=== PATIENT | male | born 1955 | race Caucasian/White ===

== ENCOUNTER 2020-03-13 21:22 | Inpatient (IN) ==
[2020-03-14] MEDS ORDERED: Naloxone 0.4 MG/ML INJ IVP PRN (01:48)
[2020-03-14] MEDS ORDERED: Ondansetron ODT 4 MG TAB.RAPDIS SL PRN (01:48)
[2020-03-14] MEDS ORDERED: Acetaminophen 325 MG TABLET PO PRN (01:48)
[2020-03-14] MEDS ORDERED: Dextrose Gel 15 GM/37.5 ML TUBE PO PRN ×2 (01:52)
[2020-03-14] MEDS ORDERED: D5% in Water 1,000 ML IVC PRN (01:52)
[2020-03-14] MEDS ORDERED: *HR* Dextrose 50 % in Water (Vial) 50 ML VIAL IVP PRN (01:52)
[2020-03-14 02:53] LABS: Basophils % 0.2 %; Hematocrit 40.4 % (37.5-50.1); Hemoglobin 13.7 g/dL (12.9-16.9); Immature Granulocytes % 0.8 % (0-4); Lymphocytes # 0.6 K/mcL (0.6-4.6); Lymphocytes % 4.5 %; Mean Corpuscular HGB Conc 33.9 g/dL (31.6-35.5); Mean Corpuscular Hemoglobin 31.6 pg (28.0-33.3); Mean Corpuscular Volume 93.1 fL (83.0-100.0); Mean Platelet Volume 9.1 fL (9.4-12.4); Monocytes # 0.3 K/mcL (0.0-1.3); Monocytes % 2.2 %; Neutrophils # 12.2 K/mcL (1.6-8.9); Platelet Count 253 K/mcL (140-400); Red Blood Count 4.34 M/mcL (4.19-5.50); Red Cell Distribution Width 11.9 % (11.5-14.5); Segmented Neutrophils % 92.3 %; White Blood Count 13.2 K/mcL (4.3-11.1)
[2020-03-14 02:54] LABS: INR 1.1; Prothrombin Time 13.2 Seconds (9.4-12.1)
[2020-03-14 03:12] LABS: Alanine Aminotransferase 38 Units/L (7-52); Albumin 3.3 g/dL (3.5-5.7); Albumin/Globulin Ratio 0.9 (1.1-2.2); Alkaline Phosphatase 90 Units/L (34-104); Aspartate Amino Transferase 25 Units/L (13-39); BUN/Creatinine Ratio 25 (6-26); Bilirubin,Total 0.6 mg/dL (0.3-1.0); Blood Urea Nitrogen 24 mg/dL (8-23); C-Reactive Protein 111 mg/L (Less than 10); Calcium 8.5 mg/dL (8.6-10.3); Carbon Dioxide 24 mEq/L (23-29); Chloride 104 mEq/L (98-107); Globulin 3.6 g/dL (2.4-3.5); Glucose 143 mg/dL (70-105); Lactate Dehydrogenase 299 Units/L (140-271); Osmolality,Calculated 291 (280-300); Phosphorous 3.3 mg/dL (2.7-4.5); Potassium 4.3 mEq/L (3.5-5.1); Sodium 137 mEq/L (136-145); Total Protein 6.9 g/dL (6.4-8.9); eGFR For African Americans > 60 (> 60); eGFR For Non-African Americans > 60 (> 60)
[2020-03-14 03:24] LABS: Thyroid Stimulating Hormone 1.494 mcIU/mL (0.340-5.600)
[2020-03-14] MEDS: *HR* Enoxaparin 40 MG/0.4 ML SYRINGE SQ SCH (05:59)
[2020-03-14] MEDS: Insulin LISPRO 300 UNITS/3 ML VIAL SUBQ SCH ×5 (06:00→21:02)
[2020-03-14] MEDS: cefTRIAXone 1,000 MG in 0.9 % Sodium Chloride Mini Bag 100 ML IVPB SCH (07:52)
[2020-03-14] MEDS: Azithromycin 500 MG in 0.9 % Sodium Chloride 250 ML IVPB SCH (07:53)
[2020-03-14] MEDS: Furosemide 40 MG/4 ML VIAL IVP SCH ×2 (12:15→21:06)
[2020-03-14] MEDS: Loratadine 10 MG TABLET PO SCH (12:15)
[2020-03-14] MEDS: Ipratropium 1 PUFF INHALER IH SCH (20:15)
[2020-03-15] MEDS: Ipratropium 1 PUFF INHALER IH SCH ×7 (00:13→23:50)
[2020-03-15 03:38] LABS: Basophils % 0.2 %; Eosinophils % 0.1 %; Hematocrit 47.6 % (37.5-50.1); Immature Granulocytes % 0.8 % (0-4); Lymphocytes # 1.2 K/mcL (0.6-4.6); Lymphocytes % 9.2 %; Mean Corpuscular Volume 93.9 fL (83.0-100.0); Mean Platelet Volume 9.6 fL (9.4-12.4); Monocytes # 0.6 K/mcL (0.0-1.3); Monocytes % 4.4 %; Neutrophils # 11.3 K/mcL (1.6-8.9); Platelet Count 296 K/mcL (140-400); Red Blood Count 5.07 M/mcL (4.19-5.50); Red Cell Distribution Width 11.9 % (11.5-14.5); Segmented Neutrophils % 85.3 %; White Blood Count 13.2 K/mcL (4.3-11.1)
[2020-03-15 03:43] LABS: Hemoglobin 16.2 g/dL (12.9-16.9)
[2020-03-15 03:55] LABS: Fibrinogen 740 mg/dL (169-393)
[2020-03-15 04:02] LABS: BUN/Creatinine Ratio 29 (6-26); Blood Urea Nitrogen 32 mg/dL (8-23); Calcium 9.2 mg/dL (8.6-10.3); Carbon Dioxide 26 mEq/L (23-29); Chloride 101 mEq/L (98-107); Glucose 121 mg/dL (70-105); Magnesium 2.2 mg/dL (1.6-2.6); Osmolality,Calculated 294 (280-300); Potassium 4.1 mEq/L (3.5-5.1); Sodium 138 mEq/L (136-145); eGFR For African Americans > 60 (> 60); eGFR For Non-African Americans > 60 (> 60)
[2020-03-15 04:25] LABS: D-Dimer 23156 ng/mLFEU (0-500)
[2020-03-15] MEDS: *HR* Enoxaparin 40 MG/0.4 ML SYRINGE SQ SCH (06:08)
[2020-03-15] MEDS ORDERED: *HR* Heparin 5,000 UNIT/ML VIAL IVP PRN ×2 (08:08)
[2020-03-15] MEDS ORDERED: *HR* Heparin 5,000 UNIT/ML VIAL IVP ONE (08:08)
[2020-03-15] MEDS ORDERED: Heparin 25,000UNIT/250ML 1/2NS 25,000 UNIT/250 ML IV.SOLN IVC SCH (08:15)
[2020-03-15] MEDS: Loratadine 10 MG TABLET PO SCH (08:22)
[2020-03-15] MEDS: Furosemide 40 MG/4 ML VIAL IVP SCH ×2 (08:22→20:10)
[2020-03-15] MEDS: Insulin LISPRO 300 UNITS/3 ML VIAL SUBQ SCH ×4 (08:22→21:00)
[2020-03-15] MEDS: cefTRIAXone 1,000 MG in 0.9 % Sodium Chloride Mini Bag 100 ML IVPB SCH (08:23)
[2020-03-15] MEDS: Azithromycin 500 MG in 0.9 % Sodium Chloride 250 ML IVPB SCH (08:24)
[2020-03-15 08:46] LABS: Hematocrit 46.3 % (37.5-50.1); Hemoglobin 15.6 g/dL (12.9-16.9); Mean Corpuscular HGB Conc 33.7 g/dL (31.6-35.5); Mean Corpuscular Hemoglobin 31.5 pg (28.0-33.3); Mean Corpuscular Volume 93.5 fL (83.0-100.0); Mean Platelet Volume 9.1 fL (9.4-12.4); Platelet Count 318 K/mcL (140-400); Red Blood Count 4.95 M/mcL (4.19-5.50); Red Cell Distribution Width 11.9 % (11.5-14.5); White Blood Count 14.7 K/mcL (4.3-11.1)
[2020-03-15 08:52] LABS: Heparin anti-factor XA UFH 0.23 IU/mL (0.30-0.70); INR 1.1; Prothrombin Time 12.7 Seconds (9.4-12.1)
[2020-03-15] MEDS: Pantoprazole 40 MG VIAL IVP SCH (16:28)
[2020-03-15] MEDS: GuaiFENesin Liq 200 MG/10 ML UDC PO PRN (22:05)
[2020-03-16 00:16] LABS: Heparin anti-factor XA UFH 0.52 IU/mL (0.30-0.70)
[2020-03-16 00:17] LABS: Basophils % 0.2 %; Hematocrit 44.1 % (37.5-50.1); Hemoglobin 15.5 g/dL (12.9-16.9); Immature Granulocytes % 1.4 % (0-4); Lymphocytes # 1.1 K/mcL (0.6-4.6); Lymphocytes % 7.9 %; Mean Corpuscular HGB Conc 35.1 g/dL (31.6-35.5); Mean Corpuscular Hemoglobin 32.4 pg (28.0-33.3); Mean Corpuscular Volume 92.1 fL (83.0-100.0); Mean Platelet Volume 9.3 fL (9.4-12.4); Monocytes # 0.6 K/mcL (0.0-1.3); Monocytes % 4.4 %; Neutrophils # 12.1 K/mcL (1.6-8.9); Platelet Count 312 K/mcL (140-400); Red Blood Count 4.79 M/mcL (4.19-5.50); Red Cell Distribution Width 11.9 % (11.5-14.5); Segmented Neutrophils % 86.1 %
[2020-03-16 00:30] LABS: BUN/Creatinine Ratio 28 (6-26); Blood Urea Nitrogen 32 mg/dL (8-23); Calcium 9.1 mg/dL (8.6-10.3); Carbon Dioxide 24 mEq/L (23-29); Chloride 99 mEq/L (98-107); Glucose 142 mg/dL (70-105); Magnesium 2.2 mg/dL (1.6-2.6); Osmolality,Calculated 291 (280-300); Potassium 3.4 mEq/L (3.5-5.1); Sodium 136 mEq/L (136-145); eGFR For African Americans > 60 (> 60); eGFR For Non-African Americans > 60 (> 60)
[2020-03-16] MEDS: Ipratropium 1 PUFF INHALER IH SCH ×6 (03:46→23:04)
[2020-03-16] MEDS: Loratadine 10 MG TABLET PO SCH (08:14)
[2020-03-16] MEDS: Furosemide 40 MG/4 ML VIAL IVP SCH (08:15)
[2020-03-16] MEDS: Insulin LISPRO 300 UNITS/3 ML VIAL SUBQ SCH ×2 (08:32→12:54)
[2020-03-16] MEDS: Pantoprazole 40 MG VIAL IVP SCH (08:33)
[2020-03-16] MEDS ORDERED: Isovue-370 500 ML BOTTLE IVP ONE (10:18)
[2020-03-16] MEDS ORDERED: Potassium Chloride Elixir 20 MEQ/15 ML UDC PO ONE (13:31)
[2020-03-16] MEDS ORDERED: Perflutren Lipid Microsphere 1.3 ML in 0.9 % Sodium Chloride 8.7 ML IVP PRN (13:32)
[2020-03-16] MEDS: GuaiFENesin Liq 200 MG/10 ML UDC PO PRN ×2 (14:58→22:23)
[2020-03-16] MEDS: *HR* Enoxaparin 80 MG/0.8 ML SYRINGE SQ SCH (17:28)
[2020-03-17] MEDS: GuaiFENesin/Dextromethorphan TABLET PO PRN ×2 (02:27→14:33)
[2020-03-17] MEDS: Ipratropium 1 PUFF INHALER IH SCH ×6 (04:18→23:28)
[2020-03-17 05:13] LABS: Hematocrit 42.3 % (37.5-50.1); Hemoglobin 14.4 g/dL (12.9-16.9); Mean Corpuscular Hemoglobin 31.3 pg (28.0-33.3); Mean Platelet Volume 9.2 fL (9.4-12.4); Platelet Count 275 K/mcL (140-400); Red Cell Distribution Width 11.7 % (11.5-14.5); White Blood Count 10.5 K/mcL (4.3-11.1)
[2020-03-17] MEDS: *HR* Enoxaparin 80 MG/0.8 ML SYRINGE SQ SCH (05:30)
[2020-03-17 05:31] LABS: BUN/Creatinine Ratio 28 (6-26); Blood Urea Nitrogen 32 mg/dL (8-23); Calcium 9.1 mg/dL (8.6-10.3); Carbon Dioxide 25 mEq/L (23-29); Chloride 98 mEq/L (98-107); Glucose 154 mg/dL (70-105); Osmolality,Calculated 284 (280-300); Potassium 3.8 mEq/L (3.5-5.1); Sodium 132 mEq/L (136-145); eGFR For African Americans > 60 (> 60); eGFR For Non-African Americans > 60 (> 60)
[2020-03-17] MEDS: GuaiFENesin Liq 200 MG/10 ML UDC PO PRN (08:48)
[2020-03-17] MEDS: Pantoprazole 40 MG VIAL IVP SCH (08:49)
[2020-03-17] MEDS: Loratadine 10 MG TABLET PO SCH (08:49)
[2020-03-17] MEDS: Apixaban 5 MG TABLET PO SCH (18:49)
[2020-03-17] MEDS ORDERED: Lactulose Oral Soln 20 GM/30 ML UDC PO ONE (21:53)
[2020-03-18] MEDS: GuaiFENesin Liq 200 MG/10 ML UDC PO PRN (02:20)
[2020-03-18] MEDS: Ipratropium 1 PUFF INHALER IH SCH ×3 (03:13→11:29)
[2020-03-18] MEDS: Apixaban 5 MG TABLET PO SCH (06:06)
[2020-03-18] MEDS: Loratadine 10 MG TABLET PO SCH (08:13)
[2020-03-18] MEDS ORDERED: Cholecalciferol (D-3) 1,000 UNIT (25MCG) TABLET PO SCH (09:00)
[2020-03-18 11:59] VITALS: BP 132/91
== END 2020-03-18 13:57 | disposition home or self-care (01) ==
LOC: 2NENU → SUATTDRO 03-14 00:58
PROVIDERS: ADMIT Internal Medicine; ATTEND Internal Medicine